=== PATIENT | female | born 1945 | race Two or more races ===

== ENCOUNTER 2016-09-09 15:53 | Emergency (ER) | payer SELFPAY ==
[~2016-09-09] VITALS: Ht 152.4 cm; Wt 63.5 kg
[2016-09-09 16:17] VITALS: BP 133/66
--- NOTE | 2016-09-09 16:18 | PHYS DOC ---
Adult General Chief Complaint Chief Complaint: ANIMAL BITE [facility] HPI Patient is a 70 year old female presents emergency Department with her son today with complaint of a dog bite to her left upper thigh/hip that occurred approximately one and half hours prior to arrival. Son interprets for his mother who speaks Occitan only. Patient reports that this is a neighborhood dog that is well known to her. She describes an unprovoked attack. Patient's son contacted the police who subsequently contacted animal control. Patient denies any additional injuries or concerns at this time. She does not remember when she received her last tetanus shot. Review of Systems Review of Systems Constitutional: Denies fever or chills [] Eyes: Denies change in visual acuity, redness, or eye pain [] HENT: Denies nasal congestion or sore throat [] Respiratory: Denies cough or shortness of breath [] Cardiovascular: No additional information not addressed in HPI [] GI: Denies abdominal pain, nausea, vomiting, bloody stools or diarrhea [] : Denies dysuria or hematuria [] Musculoskeletal: Denies back pain or joint pain [] Integument: Denies rash or skin lesions [] Neurologic: Denies headache, focal weakness or sensory changes [] Endocrine: Denies polyuria or polydipsia [] Physical Exam Physical Exam Constitutional: Well developed, well nourished, no acute distress, non-toxic appearance. HENT: Normocephalic, atraumatic, bilateral external ears normal, oropharynx moist, no oral exudates, nose normal. [] Eyes: PERRLA, EOMI, conjunctiva normal, no discharge. [] Neck: Normal range of motion, no tenderness, supple, no stridor. [] Cardiovascular:Heart rate regular rhythm, no murmur [] Lungs & Thorax: Bilateral breath sounds clear to auscultation [] Abdomen: Bowel sounds normal, soft, no tenderness, no masses, no pulsatile masses. [] Skin: Warm, dry, no erythema, no rash. [] Back: No tenderness, no CVA tenderness. [] Extremities: Approximate 7 superficial puncture wounds to the lateral aspect of patient's proximal left thigh. There is no active bleeding. The puncture wounds extend into the dermis. There is no evidence of subcutaneous tissue involvement. There is no evidence of retained foreign body in these punctures. Patient is able perform full range of motion with her left lower leg. Neurologic: Alert and oriented X 3, normal motor function, normal sensory function, no focal deficits noted. [] Psychologic: Affect normal, judgement normal, mood normal. [] EKG EKG [] Radiology/Procedures Radiology/Procedures [] Course & Med Decision Making Course & Med Decision Making Pertinent Labs and Imaging studies reviewed. (See chart for details) [] Dragon Disclaimer Dragon Disclaimer This electronic medical record was generated, in whole or in part, using a voice recognition dictation system. Departure Departure Impression: Primary Impression: Dog bite of extremity Disposition: HOME, SELF-CARE Condition: GOOD Patient Instructions: Animal Bite, [id number], Diphtheria Toxoid; Tetanus Toxoid Adsorbed, DT, Td Additional Instructions: 1. Take the medication as prescribed. 2. Review the discharge instructions provided for self-care and reasons to return to the emergency department. 3. Follow-up with a primary care doctor's office by using the pamphlet provided to have a wound check by Sunday or Sunday of this coming week. If you're unable to follow-up with a primary care doctor's office, then follow-up with the emergency department for a wound recheck. 4. Be sure same contact with animal control for information about the dog that bit you. Scripts Hydrocodone/Apap 5-325 (Kane 5-325 Tablet)1 Each Tablet1 Tab PO PRN Q6HRS PRN PAIN #15 TAB Ref 0 Prov:TAWANDA DURANT 09/09/16 Amoxicillin/Potassium Clav (Augmentin 875-125 Tablet)1 Each Tablet1 Tab PO BID # 14 TAB Prov:TAWANDA DURANT 09/09/16 TAWANDA DURANT Sep 09, 2016 16:18
[2016-09-09] MEDS ORDERED: AMOX1TAB61 PO (16:24)
[2016-09-09] MEDS ORDERED: HYDR-971 PO (16:24)
[2016-09-09] MEDS ORDERED: DIPHTH,PERTUSS(ACELL),TET TOX 0.5 ML DISP.SYRIN. VAX IM ONE (17:00)
== END 2016-09-09 16:38 | disposition home or self-care (01) ==
LOC: ER 15:53
DX: S71.132A Puncture wound without foreign body, left thigh, initial encounter (principal); W54.0XXA Bitten by dog, initial encounter; Y93.89 Activity, other specified; Y92.89 Other specified places as the place of occurrence of the external cause; Y99.8 Other external cause status
CPT/HCPCS: 90471; 90715; 99283-25

== ENCOUNTER 2016-09-13 11:57 | Emergency (ER) | payer SELFPAY ==
[~2016-09-13] VITALS: Ht 152.4 cm; Wt 64.0 kg
[~2016-09-13 11:57] MED LIST: AMOX1TAB61 PO; HYDR-971 PO
[2016-09-13 12:15] VITALS: BP 125/64
--- NOTE | 2016-09-13 12:27 | PHYS DOC ---
Past Medical History Past Medical History: No Pertinent History Past Surgical History: Other Additional Past Surgical Histo: R FOOT Alcohol Use: None Drug Use: None Adult General Chief Complaint Chief Complaint: WOUND CHECK [facility] HPI Patient is a 71 year old presents emergency department stating that she was bit by a dog on for one. She was seen here and was placed on antibiotics. She states that she's continued to take the antibiotics as prescribed she's continued to take medication for pain as needed. Patient denies any drainage or discharge coming from the areas. The site appears to be very black and blue no drainage or discharge noted from the areas have slight redness noted around the outside of the scabbed area with. She does have 3 areas that appear to be scabbed. Patient Review of Systems Review of Systems Constitutional: Denies fever or chills [] Eyes: Denies change in visual acuity, redness, or eye pain [] HENT: Denies nasal congestion or sore throat [] Respiratory: Denies cough or shortness of breath [] Cardiovascular: No additional information not addressed in HPI [] GI: Denies abdominal pain, nausea, vomiting, bloody stools or diarrhea [] : Denies dysuria or hematuria [] Musculoskeletal: Denies back pain or joint pain [] Integument: Denies rash or skin lesions, Patient here for wound recheck Neurologic: Denies headache, focal weakness or sensory changes [] Allergies Allergies Allergies Coded Allergies Type Severity Reaction Last Updated Verified No Known Drug Allergies 09/09/16 No Physical Exam Physical Exam Constitutional: Well developed, well nourished, no acute distress, non-toxic appearance. [] HENT: Normocephalic, atraumatic, bilateral external ears normal, oropharynx moist, no oral exudates, nose normal. [] Eyes: PERRLA, EOMI, conjunctiva normal, no discharge. [] Neck: Normal range of motion, no tenderness, supple, no stridor. [] Cardiovascular: Patient pink warm and dry Lungs & Thorax: No respiratory distress noted Skin: Warm, dry, no erythema, no rash. Patient with 3 scabbed areas on her left posterior thigh that appears to have no drainage or discharge noted from the sites. Patient does have large amount of bruising noted on the thigh as well. Minimal redness noted no warmth noted. Back: No tenderness Extremities: No tenderness, no cyanosis, no clubbing, ROM intact, no edema. [] Neurologic: Alert and oriented X 3, normal motor function, normal sensory function, no focal deficits noted. [] Psychologic: Affect normal, judgement normal, mood normal. [] EKG EKG [] Radiology/Procedures Radiology/Procedures [] Course & Med Decision Making Course & Med Decision Making Pertinent Labs and Imaging studies reviewed. (See chart for details) ABD dressing was applied to the left posterior leg by nursing staff. Patient was encouraged to continue to use the antibiotics as prescribed. Medication as needed. Ice packs on 20 minutes off 20 minutes as needed for pain and discomfort. Patient was also recommended to follow-up primary care physician as needed signs symptoms to return back to emergency department been provided. Patient agrees with discharge instructions treatment regimens and follow-up recommendations. [] Dragon Disclaimer Dragon Disclaimer This electronic medical record was generated, in whole or in part, using a voice recognition dictation system. Departure Departure Impression: Primary Impression: Visit for wound check Disposition: HOME, SELF-CARE Condition: STABLE Referrals: NO PCP (PCP) Patient Instructions: Puncture Wound, [id number] Additional Instructions: Activity as tolerated. Medications as prescribed from your visit on September 09. Keep the areas clean and dry. Clean the sites twice a day with soap and water and apply antibiotic ointment to the areas. Watch the sites for any signs and symptoms of infection: Redness, warmth, tenderness or any yellow or greenish drainage of a come from the site. Follow-up to primary care physician as needed. Return back to emergency prior signs symptoms of become worse. SARAH ROBERTS APRN Sep 13, 2016 12:27
== END 2016-09-13 12:39 | disposition home or self-care (01) ==
LOC: ER 11:57
DX: Z48.01 Encounter for change or removal of surgical wound dressing (principal); Z98.890 Other specified postprocedural states
CPT/HCPCS: 99283